=== PATIENT | female | born 2000 | race Caucasian/White ===

== ENCOUNTER 2021-05-14 16:19 | Emergency (ER) | payer OTHER, SELFPAY ==
[2021-05-14 16:21] VITALS: BP 146/85; PULSE 89; RESP 16; TEMP 36.7; O2SAT 100
[2021-05-14] MEDS: KETOROLAC (*BKC) 60 MG/2 ML VIAL IM (17:00)
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
[2021-05-14 17:55] VITALS: BP 133/80; PULSE 84; RESP 16; TEMP 37.1; O2SAT 100
== END 2021-05-14 17:56 | disposition home or self-care (01) ==
PROVIDERS: Emergency Provider Emergency Medicine
DX: R51.9 Headache, unspecified (principal); S16.1XXA Strain of muscle, fascia and tendon at neck level, initial encounter; V49.40XA Driver injured in collision with unspecified motor vehicles in traffic accident, initial encounter
CPT/HCPCS: 96372; 99283; J1885